=== PATIENT | male | born 1930 | race Caucasian/White ===

== ENCOUNTER 2017-07-20 21:36 | Inpatient (IN) ==
[2017-07-20] MEDS ORDERED: ALUM/MAG/SIMETH/LIDO VISC 1:1 30 ML BOTTLE PO STA (23:15)
[2017-07-20] MEDS ORDERED: MORPHINE 2 MG/1 ML SYRINGE IV STA (23:15)
[2017-07-20] MEDS ORDERED: ONDANSETRON 4 MG/2 ML VIAL IV STA (23:15)
[2017-07-20] MEDS ORDERED: NITROGLYCERIN 2% OINT 1 INCH/GM PACK TOP STA (23:15)
[2017-07-20] MEDS ORDERED: ASPIRIN 325 MG TABLET PO STA (23:15)
[2017-07-20 23:23] LABS: Basophils % 0.6 % (0.0-0.8); Eosinophils # 0.2 10*3/uL (0.0-0.87); Hematocrit 33.1 VOL% (42.0-52.0); Hemoglobin 10.8 GM/DL (14.0-18.0); Immature Granulocytes % 0.4 %; Immature Granulocytes Absolute 0.02 #; Lymphocytes # 1.3 10*3/uL (1.4-4.0); Lymphocytes % 25.1 % (21.2-54.2); Mean Corpuscular HGB Conc 32.6 GM/DL (32-36); Mean Corpuscular Hemoglobin 28 PG (27-34); Mean Corpuscular Volume 87.1 FL (87-102); Mean Platelet Volume 10.8 FL (9.6-12.0); Monocytes # 0.6 10*3/uL (0.11-0.8); Monocytes % 12.4 % (1.7-12.7); Neutrophils # 2.9 10*3/uL (1.4-7.4); Neutrophils % 58.5 % (38.7-73.9); Platelet Count 181 T/CUMM (130-400); Red Cell Distribution Width 13.2 % (9.3-17.3)
[2017-07-20 23:29] LABS: PT Patient Result 10.4 SECS
[2017-07-20 23:37] LABS: Alanine Aminotransferase 29 U/L (16-61); Albumin 3.2 G/DL (3.4-5.0); Alkaline Phosphatase 67 U/L (45-117); Aspartate Amino Transferase 16 U/L (0-37); Bilirubin,Total < 0.39 MG/DL (0.2-1.0); Blood Urea Nitrogen 30 MG/DL (7-18); Calcium 8.3 MG/DL (8.5-10.1); Glucose 243 MG/DL (74-106); Osmolality,Calculated 296.1 MOS/KG (273-304); Potassium 4.5 MMOL/L (3.5-5.1); Sodium 142 MMOL/L (136-145); Total Protein 5.8 G/DL (6.4-8.3)
[2017-07-20] MEDS ORDERED: NITROGLYCERIN 2% OINT 1 INCH/GM PACK TOP ONE (23:51)
[2017-07-20] MEDS ORDERED: MORPHINE 2 MG/1 ML SYRINGE ONE (23:51)
[2017-07-20] MEDS ORDERED: ONDANSETRON 4 MG/2 ML VIAL ONE (23:51)
[2017-07-20] MEDS ORDERED: ALUM/MAG/SIMETH/LIDO VISC 1:1 30 ML BOTTLE PO ONE (23:51)
[2017-07-20] MEDS ORDERED: ASPIRIN 325 MG TABLET ONE (23:51)
[2017-07-21] MEDS ORDERED: MAGNESIUM SULF RIDER 4 GM in PREMIX 1 EACH IV PRN (02:40)
[2017-07-21] MEDS ORDERED: GLUCAGON 1 MG VIAL IM PRN (02:40)
[2017-07-21] MEDS ORDERED: SODIUM CHLORIDE 0.9% 1,000 ML IV SCH ×2 (02:40→14:30)
[2017-07-21] MEDS ORDERED: MAGNESIUM SULF RIDER 2 GM in PREMIX 1 EACH IV PRN ×2 (02:40→11:57)
[2017-07-21] MEDS ORDERED: DEXTROSE 50% 25 GM/50 ML VIAL IV PRN (02:40)
[2017-07-21] MEDS ORDERED: POTASSIUM CHLORIDE 20 MEQ TABLET PO PRN (02:40)
[2017-07-21 03:16] LABS: Basophils % 0.4 % (0.0-0.8); Eosinophils # 0.2 10*3/uL (0.0-0.87); Eosinophils % 2.9 % (0.00-10.9); Hematocrit 33.4 VOL% (42.0-52.0); Hemoglobin 10.8 GM/DL (14.0-18.0); Immature Granulocytes % 0.2 %; Immature Granulocytes Absolute 0.02 #; Lymphocytes # 1.2 10*3/uL (1.4-4.0); Lymphocytes % 14.6 % (21.2-54.2); Mean Corpuscular HGB Conc 32.3 GM/DL (32-36); Mean Corpuscular Hemoglobin 28 PG (27-34); Mean Corpuscular Volume 87.9 FL (87-102); Mean Platelet Volume 10.4 FL (9.6-12.0); Monocytes # 1.1 10*3/uL (0.11-0.8); Neutrophils # 5.5 10*3/uL (1.4-7.4); Neutrophils % 67.9 % (38.7-73.9); Platelet Count 171 T/CUMM (130-400); Red Cell Distribution Width 13.1 % (9.3-17.3); White Blood Count 8.1 T/CUMM (4-12)
[2017-07-21 03:53] LABS: Albumin 3.3 G/DL (3.4-5.0); Bilirubin,Total 0.5 MG/DL (0.2-1.0); Calcium 8.4 MG/DL (8.5-10.1); Magnesium 2.1 MG/DL (1.8-2.4); Potassium 4.8 MMOL/L (3.5-5.1); Risk Ratio 3.62; Thyroid Stimulating Hormone 2.34 uIU/ml (0.358-3.74); Total Protein 5.8 G/DL (6.4-8.3); VLDL CHOLESTEROL 29.4 MG/DL
[2017-07-21] MEDS: ENOXAPARIN 100 MG/ML SYRINGE SUBCUT SCH (05:16)
[2017-07-21] MEDS: NITROGLYCERIN 2% OINT 1 INCH/GM PACK TOP SCH ×3 (05:41→18:19)
[2017-07-21] MEDS: INSULIN REGULAR 100 UNIT/ML SUBCUT SCH ×4 (08:07→21:54)
[2017-07-21] MEDS ORDERED: FUROSEMIDE 40 MG TABLET PO PRN (09:08)
[2017-07-21] MEDS: ASPIRIN EC 325 MG TABLET PO SCH ×2 (09:25→09:27)
[2017-07-21] MEDS ORDERED: diphenhydrAMINE CAP 25 MG CAPSULE PO ONE (11:57)
[2017-07-21] MEDS ORDERED: DIAZEPAM 5 MG TABLET PO ONE (11:57)
[2017-07-21] MEDS ORDERED: POTASSIUM CHLORIDE RIDER 10 MEQ in PREMIX 1 EACH IV PRN (11:57)
[2017-07-21] MEDS ORDERED: diphenhydrAMINE CAP 50 MG CAPSULE ONE (11:58)
[2017-07-21] MEDS ORDERED: DIAZEPAM 5 MG TABLET ONE (11:59)
[2017-07-21] MEDS ORDERED: SODIUM CHLORIDE 0.45% 1,000 ML IV SCH (12:00)
[2017-07-21] MEDS ORDERED: methylPREDNISolone SOD SUC 125 MG/2 ML VIAL IV ONE (12:01)
[2017-07-21] MEDS ORDERED: diphenhydrAMINE 50 MG/1 ML VIAL IV ONE (12:02)
[2017-07-21] MEDS ORDERED: diphenhydrAMINE 50 MG/1 ML VIAL ONE (12:02)
[2017-07-21] MEDS ORDERED: fentaNYL 100 MCG/2 ML VIAL ONE (12:29)
[2017-07-21] MEDS ORDERED: MIDAZOLAM 2 MG/2 ML VIAL ONE (12:29)
[2017-07-21] MEDS ORDERED: LIDOCAINE 1% 20 ML VIAL ONE (12:29)
[2017-07-21] MEDS ORDERED: VERAPAMIL 5 MG/2 ML VIAL ONE (12:47)
[2017-07-21] MEDS ORDERED: NITROGLYCERIN DRIP 50 MG/250 ML BOTTLE IV ONE (12:47)
[2017-07-21] MEDS ORDERED: TIROFIBAN 5,000 MCG/100 ML PREMIX IV SCH (13:15)
[2017-07-21] MEDS ORDERED: hydrALAZINE 20 MG/1 ML VIAL ONE (13:37)
[2017-07-21] MEDS ORDERED: TICAGRELOR 90 MG TABLET ONE (13:51)
[2017-07-21] MEDS ORDERED: ZALEPLON 5 MG CAPSULE PO PRN (13:54)
[2017-07-21] MEDS ORDERED: ACETAMINOPHEN 325 MG TABLET PO PRN (13:54)
[2017-07-21] MEDS ORDERED: ONDANSETRON 4 MG/2 ML VIAL IV PRN (13:54)
[2017-07-21] MEDS ORDERED: guaiFENesin/DM ER 600-30 MG TABLET PO PRN (13:54)
[2017-07-21] MEDS ORDERED: BISACODYL 5 MG TABLET PO PRN (13:54)
[2017-07-21] MEDS ORDERED: NITROGLYCERIN SL 0.4 MG TABLET SL PRN (14:06)
[2017-07-21 15:26] LABS: Apearance,Urine CLEAR (Clear); Bilirubin,Urine Negative (Negative); Blood, Urine Negative (Negative); Glucose,Urine (UA) Negative (Negative); Ketones,Urine Negative (Negative); Nitrite,Urine Negative (Negative); Protein,Urine 30 MG/DL; RBC,Urine 1 /HPF (0-4); Urine Color Straw (Yellow); Urine Specific Gravity 1.009 (1.001-1.035); Urine Urobilinogen < 2.0 EU/DL (0.2-1.0); WBC,Urine <1 /HPF (0-6)
[2017-07-21] MEDS: MORPHINE 2 MG/1 ML SYRINGE IV PRN (15:42)
[2017-07-21] MEDS ORDERED: hydrALAZINE 25 MG TABLET PO SCH (21:00)
[2017-07-21] MEDS ORDERED: ASPIRIN EC 81 MG TABLET PO SCH (21:00)
[2017-07-21] MEDS: FOSINOPRIL 20 MG TABLET PO SCH (21:53)
[2017-07-21] MEDS: TICAGRELOR 90 MG TABLET PO SCH (21:53)
[2017-07-22] MEDS: MORPHINE 2 MG/1 ML SYRINGE IV PRN (02:00)
[2017-07-22] MEDS: NITROGLYCERIN 2% OINT 1 INCH/GM PACK TOP SCH ×4 (04:35→19:14)
[2017-07-22] MEDS: ENOXAPARIN 100 MG/ML SYRINGE SUBCUT SCH (04:36)
[2017-07-22 05:34] LABS: Basophils % 0.1 % (0.0-0.8); Hematocrit 28.4 VOL% (42.0-52.0); Hemoglobin 9.4 GM/DL (14.0-18.0); Immature Granulocytes % 0.7 %; Immature Granulocytes Absolute 0.07 #; Lymphocytes # 0.4 10*3/uL (1.4-4.0); Mean Corpuscular HGB Conc 33.1 GM/DL (32-36); Mean Corpuscular Hemoglobin 29 PG (27-34); Mean Corpuscular Volume 87.1 FL (87-102); Mean Platelet Volume 10.8 FL (9.6-12.0); Monocytes # 0.5 10*3/uL (0.11-0.8); Monocytes % 5.5 % (1.7-12.7); Neutrophils # 8.4 10*3/uL (1.4-7.4); Neutrophils % 89.7 % (38.7-73.9); Platelet Count 198 T/CUMM (130-400); Red Blood Count 3.26 MC/CUMM (3.8-5.5); White Blood Count 9.3 T/CUMM (4-12)
[2017-07-22 05:58] LABS: Eosinophils 1 % (0-10); Giant Platelets Few; Hypochromasia 1+; Lymphocytes 4 % (20-55); Platelet Estimate Adequate; Segmented Neutrophils 91 % (50-85); Total Cells Counted 100
[2017-07-22 06:02] LABS: Calcium 8.2 MG/DL (8.5-10.1); Magnesium 2.1 MG/DL (1.8-2.4); Osmolality,Calculated 302.1 MOS/KG (273-304); Potassium 5.1 MMOL/L (3.5-5.1)
[2017-07-22 06:05] LABS: Troponin I Only 0.128 NG/ML (0.00-0.045)
[2017-07-22] MEDS: INSULIN REGULAR 100 UNIT/ML SUBCUT SCH ×5 (06:27→22:15)
[2017-07-22] MEDS: FOSINOPRIL 20 MG TABLET PO SCH ×2 (09:04→21:46)
[2017-07-22] MEDS: SIMVASTATIN 40 MG TABLET PO SCH (09:04)
[2017-07-22] MEDS: TICAGRELOR 90 MG TABLET PO SCH ×2 (09:04→21:46)
[2017-07-22] MEDS: ASPIRIN EC 81 MG TABLET PO SCH (09:05)
[2017-07-22] MEDS: DUTASTERIDE 0.5 MG CAPSULE PO SCH (14:25)
[2017-07-22] MEDS: TAMSULOSIN 0.4 MG CAPSULE PO SCH (21:46)
[2017-07-23] MEDS: ENOXAPARIN 100 MG/ML SYRINGE SUBCUT SCH (03:55)
[2017-07-23] MEDS: NITROGLYCERIN 2% OINT 1 INCH/GM PACK TOP SCH ×4 (03:55→17:41)
[2017-07-23 05:23] LABS: Calcium 8.2 MG/DL (8.5-10.1); Magnesium 2.1 MG/DL (1.8-2.4); Osmolality,Calculated 298.3 MOS/KG (273-304); Potassium 4.7 MMOL/L (3.5-5.1)
[2017-07-23 07:57] LABS: Basophils % 0.2 % (0.0-0.8); Eosinophils % 0.3 % (0.00-10.9); Hematocrit 23.7 VOL% (42.0-52.0); Immature Granulocytes % 0.8 %; Immature Granulocytes Absolute 0.11 #; Lymphocytes # 1.2 10*3/uL (1.4-4.0); Lymphocytes % 9.2 % (21.2-54.2); Mean Corpuscular HGB Conc 32.9 GM/DL (32-36); Mean Corpuscular Hemoglobin 29 PG (27-34); Mean Corpuscular Volume 88.4 FL (87-102); Mean Platelet Volume 10.3 FL (9.6-12.0); Monocytes # 1.4 10*3/uL (0.11-0.8); Monocytes % 10.5 % (1.7-12.7); Neutrophils # 10.4 10*3/uL (1.4-7.4); Platelet Count 208 T/CUMM (130-400); Red Blood Count 2.68 MC/CUMM (3.8-5.5); Red Cell Distribution Width 13.8 % (9.3-17.3)
[2017-07-23 08:14] LABS: Hemoglobin 7.8 GM/DL (14.0-18.0); White Blood Count 13.2 T/CUMM (4-12)
[2017-07-23] MEDS: DUTASTERIDE 0.5 MG CAPSULE PO SCH (09:14)
[2017-07-23] MEDS: INSULIN REGULAR 100 UNIT/ML SUBCUT SCH ×4 (09:14→21:16)
[2017-07-23] MEDS: TICAGRELOR 90 MG TABLET PO SCH ×2 (09:15→21:15)
[2017-07-23] MEDS: FOSINOPRIL 20 MG TABLET PO SCH ×2 (09:15→21:15)
[2017-07-23] MEDS: SIMVASTATIN 40 MG TABLET PO SCH (09:15)
[2017-07-23] MEDS: ASPIRIN EC 81 MG TABLET PO SCH (09:15)
[2017-07-23] MEDS ORDERED: SODIUM CHLORIDE 0.9% 1,000 ML IV PRN (09:33)
[2017-07-23] MEDS ORDERED: ALUMINUM/MAGNES/SIMETH MAX STR 30 ML UDCUP PO PRN (10:04)
[2017-07-23 18:27] LABS: Hematocrit 30.8 VOL% (42.0-52.0); Hemoglobin 10.1 GM/DL (14.0-18.0)
[2017-07-23] MEDS: TAMSULOSIN 0.4 MG CAPSULE PO SCH (21:15)
[2017-07-24] MEDS: NITROGLYCERIN 2% OINT 1 INCH/GM PACK TOP SCH ×4 (00:23→17:33)
[2017-07-24 03:49] LABS: Basophils % 0.4 % (0.0-0.8); Eosinophils # 0.2 10*3/uL (0.0-0.87); Eosinophils % 1.8 % (0.00-10.9); Hematocrit 28.8 VOL% (42.0-52.0); Hemoglobin 9.7 GM/DL (14.0-18.0); Lymphocytes # 1.3 10*3/uL (1.4-4.0); Lymphocytes % 13.4 % (21.2-54.2); Mean Corpuscular HGB Conc 33.7 GM/DL (32-36); Mean Corpuscular Hemoglobin 29 PG (27-34); Mean Corpuscular Volume 86.2 FL (87-102); Mean Platelet Volume 10.3 FL (9.6-12.0); Monocytes # 1.2 10*3/uL (0.11-0.8); Monocytes % 12.7 % (1.7-12.7); Neutrophils # 6.8 10*3/uL (1.4-7.4); Neutrophils % 70.7 % (38.7-73.9); Platelet Count 185 T/CUMM (130-400); Red Blood Count 3.34 MC/CUMM (3.8-5.5); Red Cell Distribution Width 14.3 % (9.3-17.3); White Blood Count 9.7 T/CUMM (4-12)
[2017-07-24 04:05] LABS: Calcium 8.4 MG/DL (8.5-10.1); Osmolality,Calculated 295.1 MOS/KG (273-304); Potassium 4.3 MMOL/L (3.5-5.1)
[2017-07-24] MEDS: DUTASTERIDE 0.5 MG CAPSULE PO SCH (09:37)
[2017-07-24] MEDS: ASPIRIN EC 81 MG TABLET PO SCH (09:37)
[2017-07-24] MEDS: FOSINOPRIL 20 MG TABLET PO SCH ×2 (09:37→21:46)
[2017-07-24] MEDS: TICAGRELOR 90 MG TABLET PO SCH ×2 (09:38→21:46)
[2017-07-24] MEDS: INSULIN REGULAR 100 UNIT/ML SUBCUT SCH ×4 (09:38→21:46)
[2017-07-24] MEDS: SIMVASTATIN 40 MG TABLET PO SCH (09:38)
[2017-07-24] MEDS: TAMSULOSIN 0.4 MG CAPSULE PO SCH (21:46)
[2017-07-25] MEDS: NITROGLYCERIN 2% OINT 1 INCH/GM PACK TOP SCH ×5 (00:03→23:33)
[2017-07-25 05:49] LABS: Basophils % 0.3 % (0.0-0.8); Eosinophils # 0.3 10*3/uL (0.0-0.87); Eosinophils % 3.2 % (0.00-10.9); Hematocrit 28.8 VOL% (42.0-52.0); Hemoglobin 9.9 GM/DL (14.0-18.0); Immature Granulocytes % 0.8 %; Immature Granulocytes Absolute 0.07 #; Lymphocytes % 11.1 % (21.2-54.2); Mean Corpuscular HGB Conc 34.4 GM/DL (32-36); Mean Corpuscular Hemoglobin 29 PG (27-34); Mean Corpuscular Volume 84.2 FL (87-102); Mean Platelet Volume 10.2 FL (9.6-12.0); Monocytes # 1.2 10*3/uL (0.11-0.8); Monocytes % 13.5 % (1.7-12.7); Neutrophils # 6.6 10*3/uL (1.4-7.4); Neutrophils % 71.1 % (38.7-73.9); Platelet Count 183 T/CUMM (130-400); Red Blood Count 3.42 MC/CUMM (3.8-5.5); Red Cell Distribution Width 14.5 % (9.3-17.3); White Blood Count 9.2 T/CUMM (4-12)
[2017-07-25 06:09] LABS: Calcium 8.7 MG/DL (8.5-10.1); Magnesium 1.9 MG/DL (1.8-2.4); Osmolality,Calculated 291.3 MOS/KG (273-304); Potassium 4.1 MMOL/L (3.5-5.1)
[2017-07-25] MEDS: SIMVASTATIN 40 MG TABLET PO SCH (09:58)
[2017-07-25] MEDS: INSULIN REGULAR 100 UNIT/ML SUBCUT SCH ×4 (09:58→21:18)
[2017-07-25] MEDS: DUTASTERIDE 0.5 MG CAPSULE PO SCH (09:58)
[2017-07-25] MEDS: TICAGRELOR 90 MG TABLET PO SCH ×2 (09:58→21:21)
[2017-07-25] MEDS: FOSINOPRIL 20 MG TABLET PO SCH ×2 (09:58→21:21)
[2017-07-25] MEDS: ASPIRIN EC 81 MG TABLET PO SCH (09:59)
[2017-07-25] MEDS: TAMSULOSIN 0.4 MG CAPSULE PO SCH (21:21)
[2017-07-26 05:37] LABS: Basophils % 0.2 % (0.0-0.8); Eosinophils # 0.4 10*3/uL (0.0-0.87); Eosinophils % 3.8 % (0.00-10.9); Hematocrit 31.3 VOL% (42.0-52.0); Hemoglobin 10.4 GM/DL (14.0-18.0); Immature Granulocytes % 1.1 %; Immature Granulocytes Absolute 0.11 #; Lymphocytes # 1.1 10*3/uL (1.4-4.0); Lymphocytes % 11.5 % (21.2-54.2); Mean Corpuscular HGB Conc 33.2 GM/DL (32-36); Mean Corpuscular Hemoglobin 29 PG (27-34); Mean Corpuscular Volume 86.7 FL (87-102); Mean Platelet Volume 9.8 FL (9.6-12.0); Monocytes # 1.4 10*3/uL (0.11-0.8); Monocytes % 14.9 % (1.7-12.7); Neutrophils # 6.6 10*3/uL (1.4-7.4); Neutrophils % 68.5 % (38.7-73.9); Platelet Count 206 T/CUMM (130-400); Red Blood Count 3.61 MC/CUMM (3.8-5.5); Red Cell Distribution Width 14.3 % (9.3-17.3); White Blood Count 9.6 T/CUMM (4-12)
[2017-07-26] MEDS: NITROGLYCERIN 2% OINT 1 INCH/GM PACK TOP SCH ×3 (06:00→17:27)
[2017-07-26 06:06] LABS: Calcium 8.8 MG/DL (8.5-10.1); Osmolality,Calculated 294.3 MOS/KG (273-304); Potassium 4.4 MMOL/L (3.5-5.1)
[2017-07-26] MEDS: INSULIN REGULAR 100 UNIT/ML SUBCUT SCH ×4 (08:33→22:11)
[2017-07-26] MEDS: FOSINOPRIL 20 MG TABLET PO SCH ×2 (08:34→22:12)
[2017-07-26] MEDS: SIMVASTATIN 40 MG TABLET PO SCH (08:34)
[2017-07-26] MEDS: ASPIRIN EC 81 MG TABLET PO SCH (08:34)
[2017-07-26] MEDS: DUTASTERIDE 0.5 MG CAPSULE PO SCH (08:34)
[2017-07-26] MEDS: TICAGRELOR 90 MG TABLET PO SCH ×2 (08:34→22:12)
[2017-07-26] MEDS: TAMSULOSIN 0.4 MG CAPSULE PO SCH (22:12)
[2017-07-27] MEDS: NITROGLYCERIN 2% OINT 1 INCH/GM PACK TOP SCH ×4 (01:36→17:06)
[2017-07-27 03:22] LABS: Basophils % 0.2 % (0.0-0.8); Eosinophils # 0.4 10*3/uL (0.0-0.87); Eosinophils % 4.2 % (0.00-10.9); Hematocrit 30.7 VOL% (42.0-52.0); Immature Granulocytes % 1.4 %; Immature Granulocytes Absolute 0.13 #; Lymphocytes # 1.1 10*3/uL (1.4-4.0); Lymphocytes % 11.8 % (21.2-54.2); Mean Corpuscular HGB Conc 32.6 GM/DL (32-36); Mean Corpuscular Hemoglobin 28 PG (27-34); Mean Platelet Volume 9.9 FL (9.6-12.0); Monocytes # 1.6 10*3/uL (0.11-0.8); Monocytes % 17.3 % (1.7-12.7); Neutrophils % 65.1 % (38.7-73.9); Platelet Count 211 T/CUMM (130-400); Red Blood Count 3.53 MC/CUMM (3.8-5.5); Red Cell Distribution Width 14.3 % (9.3-17.3); White Blood Count 9.3 T/CUMM (4-12)
[2017-07-27 03:50] LABS: Calcium 8.6 MG/DL (8.5-10.1); Magnesium 1.9 MG/DL (1.8-2.4); Osmolality,Calculated 287.5 MOS/KG (273-304); Potassium 4.3 MMOL/L (3.5-5.1)
[2017-07-27 04:50] LABS: Eosinophils 10 % (0-10); Lymphocytes 11 % (20-55); Nucleated Red Blood Cells 1 (0-5); Platelet Estimate Normal; Segmented Neutrophils 66 % (50-85); Total Cells Counted 100
[2017-07-27] MEDS: INSULIN REGULAR 100 UNIT/ML SUBCUT SCH ×4 (09:36→22:27)
[2017-07-27] MEDS: DUTASTERIDE 0.5 MG CAPSULE PO SCH (09:38)
[2017-07-27] MEDS: FOSINOPRIL 20 MG TABLET PO SCH ×2 (09:38→22:27)
[2017-07-27] MEDS: SIMVASTATIN 40 MG TABLET PO SCH (09:38)
[2017-07-27] MEDS: ASPIRIN EC 81 MG TABLET PO SCH (09:38)
[2017-07-27] MEDS: TICAGRELOR 90 MG TABLET PO SCH ×2 (09:38→22:27)
[2017-07-27] MEDS: TAMSULOSIN 0.4 MG CAPSULE PO SCH (22:27)
[2017-07-28] MEDS: NITROGLYCERIN 2% OINT 1 INCH/GM PACK TOP SCH ×2 (02:13→06:17)
[2017-07-28 06:11] LABS: Basophils % 0.2 % (0.0-0.8); Eosinophils # 0.5 10*3/uL (0.0-0.87); Eosinophils % 3.7 % (0.00-10.9); Hemoglobin 10.5 GM/DL (14.0-18.0); Immature Granulocytes % 1.1 %; Immature Granulocytes Absolute 0.14 #; Lymphocytes # 1.6 10*3/uL (1.4-4.0); Lymphocytes % 12.7 % (21.2-54.2); Mean Corpuscular HGB Conc 32.8 GM/DL (32-36); Mean Corpuscular Hemoglobin 29 PG (27-34); Mean Corpuscular Volume 87.9 FL (87-102); Mean Platelet Volume 9.8 FL (9.6-12.0); Monocytes # 1.9 10*3/uL (0.11-0.8); Monocytes % 15.4 % (1.7-12.7); Neutrophils # 8.2 10*3/uL (1.4-7.4); Neutrophils % 66.9 % (38.7-73.9); Platelet Count 252 T/CUMM (130-400); Red Blood Count 3.64 MC/CUMM (3.8-5.5); Red Cell Distribution Width 13.9 % (9.3-17.3); White Blood Count 12.3 T/CUMM (4-12)
[2017-07-28 06:34] LABS: Calcium 8.6 MG/DL (8.5-10.1); Magnesium 2.1 MG/DL (1.8-2.4); Osmolality,Calculated 284.8 MOS/KG (273-304); Potassium 4.7 MMOL/L (3.5-5.1)
[2017-07-28 08:18] VITALS: BP 111/73
[2017-07-28] MEDS: INSULIN REGULAR 100 UNIT/ML SUBCUT SCH (08:52)
[2017-07-28] MEDS: DUTASTERIDE 0.5 MG CAPSULE PO SCH (08:53)
[2017-07-28] MEDS: TICAGRELOR 90 MG TABLET PO SCH (08:53)
[2017-07-28] MEDS: SIMVASTATIN 40 MG TABLET PO SCH (08:53)
[2017-07-28] MEDS: FOSINOPRIL 20 MG TABLET PO SCH (08:53)
[2017-07-28] MEDS: ASPIRIN EC 81 MG TABLET PO SCH (08:53)
[2017-07-28] MEDS ORDERED: METOPROLOL SUCCINATE XL 25 MG TABLET PO SCH (09:00)
== END 2017-07-28 12:47 | disposition home or self-care (01) | DRG 247 ==
LOC: EDBD → EDUNIT# → N.ED 21:36 → N.EDINP 07-21 00:08 → N.TELES 07-21 00:41
PROVIDERS: ADMIT Internal Medicine Cardiovascular Disease; ATTEND Internal Medicine Cardiovascular Disease
PROC: CLCCHCL (ICD-10-PCS; 2017-07-21 12:45)